=== PATIENT | female | born 1970 | race American Indian/Alaskan Native ===

== ENCOUNTER 2021-05-30 09:46 | Emergency (ER) | payer BC ==
[2021-05-30 11:16] VITALS: BP 133/60
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
== END 2021-05-30 12:42 | disposition home or self-care (01) ==
LOC: ED 09:46
DX: R51.9 Headache, unspecified (principal); M54.2 Cervicalgia; V89.2XXA Person injured in unspecified motor-vehicle accident, traffic, initial encounter; Y93.89 Activity, other specified; Y92.89 Other specified places as the place of occurrence of the external cause; Y99.8 Other external cause status
CPT/HCPCS: 99282